=== PATIENT | female | born 1930 | race Caucasian/White ===

== ENCOUNTER 2018-06-06 11:14 | Emergency (ER) | payer OTHER ==
--- NOTE | 2018-06-06 11:32 | PDOC ---
History of Present Illness - General Chief Complaint: Wound Stated Complaint: RIGHT LEG WOUND Time Seen by Provider: 06/06/18 11:26 History Source: Patient Past History - Past Medical History Allergies/Adverse Reactions: Allergies Allergy/AdvReac Type Severity Reaction Status Date / Time Penicillins Allergy Severe Difficulty Verified 06/06/18 11:22 Breathing methohexital sodium Allergy n/v rash Verified 06/06/18 11:22 [From Brevital] Sulfa (Sulfonamide Allergy rash Verified 06/06/18 11:22 Antibiotics) Home Medications: Ambulatory Orders Crestor 06/06/18 Mirapex 06/06/18 Plaquenil 06/06/18 Hypercholesterolemia: Yes - Surgical History Abdominal Surgery: Yes (SBO/GANGRENE.) Orthopedic Surgery: Yes (left hip sx x 2,left femur sx,left hip sx x 1) - Suicide/Smoking/Psychosocial Hx Smoking History: Former smoker Have you smoked in the past 12 months: No If you are a former smoker, when did you quit?: OVER 35 YEARS AGO Hx Alcohol Use: No Drug/Substance Use Hx: No Substance Use Type: None Hx Substance Use Treatment: No
[2018-06-06 11:40] VITALS: BP 171/93; PULSE 71; TEMP 98.1; BMI 17.5
--- NOTE | 2018-06-06 11:54 | PDOC ---
History of Present Illness - General Chief Complaint: Wound Stated Complaint: RIGHT LEG WOUND Time Seen by Provider: 06/06/18 11:26 History Source: Patient Exam Limitations: No Limitations - History of Present Illness Initial Comments: 06/06/18 11:48 Ms Mann is an 88 yo F with a h/o RA (on Plaquenil), HLD, Spinal stenosis She presents to the ER for evaluation of a right leg wound Pt states she was in her usual state of health. While going down the stairs 3 or 4 days ago, the back of her leg was scratched by the carpet in her home No other traumatic injury reported Since that time, she has been keeping the area clean and dry, she applied bacitracin She presents today because she is concerned about superinfection No fevers or chills No drainage, no streaking erythema Mild pain at the site of injury PMH: HLD, RA PSH: Exlap for SBO, Left hip surg, Left femur surg, Right TKR Meds: Plaquenil ALL: PCN, Sulfa Social: denies drug or tobacco use FH: non contributory ROS: GENERAL/CONSTITUTIONAL: No: fever, chills MUSCULOSKELETAL: Yes: right leg pain SKIN: Yes: leg wound No: lesions, pallor, rash or easy bruising. NEUROLOGIC: No: headache, vertigo, paresthesias, weakness PE: GENERAL: The patient is in no acute distress. LUNGS: Breath sounds equal, clear to auscultation bilaterally. HEART:Regular rate and rhythm, normal S1 and S2 without murmur, rub or gallop. ABDOMEN: Soft, nontender EXTREMITIES: Normal range of motion, no edema. No clubbing or cyanosis. No erythema, or tenderness. NEUROLOGICAL: Cranial nerves II through XII grossly intact. Normal speech. No focal neurological deficits. MUSCULOSKELETAL: Right knee replaced, right leg swollen SKIN: Right leg superficial abrasion, fibrinous base, mild surrounding erythema , no drainage, no streaking erythema, no drainage 06/06/18 11:57 Past History - Past Medical History Allergies/Adverse Reactions: Allergies Allergy/AdvReac Type Severity Reaction Status Date / Time Penicillins Allergy Severe Difficulty Verified 06/06/18 11:22 Breathing methohexital sodium Allergy n/v rash Verified 06/06/18 11:22 [From Brevital] Sulfa (Sulfonamide Allergy rash Verified 06/06/18 11:22 Antibiotics) Home Medications: Ambulatory Orders Cephalexin Monohydrate [Keflex -] 250 mg PO Q6H #28 capsule 06/06/18 Crestor 06/06/18 Mirapex 06/06/18 Plaquenil 06/06/18 COPD: No Hypercholesterolemia: Yes - Surgical History Abdominal Surgery: Yes (SBO/GANGRENE.) Orthopedic Surgery: Yes (left hip sx x 2,left femur sx,left hip sx x 1) - Suicide/Smoking/Psychosocial Hx Smoking History: Former smoker Have you smoked in the past 12 months: No If you are a former smoker, when did you quit?: OVER 35 YEARS AGO Information on smoking cessation initiated: No Hx Alcohol Use: No Drug/Substance Use Hx: No Substance Use Type: None Hx Substance Use Treatment: No *Physical Exam - Vital Signs Last Vital Signs Temp Pulse Resp BP Pulse Ox 98.1 F 71 20 171/93 H 100 06/06/18 11:22 06/06/18 11:22 06/06/18 11:22 06/06/18 11:22 06/06/18 11:22 Moderate Sedation - Procedure Monitoring Vital Signs: Procedure Monitoring Vital Signs Temperature 98.1 F 06/06/18 11:22 Pulse Rate 71 06/06/18 11:22 Respiratory Rate 20 06/06/18 11:22 Blood Pressure 171/93 H 06/06/18 11:22 O2 Sat by Pulse Oximetry (%) 100 06/06/18 11:22 Medical Decision Making - Medical Decision Making 06/06/18 11:50 No systemic signs of illness No surrounding erythema or drainage Will give abx as pt is immunosuppressed on Plaquenil Will ask pt to follow up with Dr Moore (or the ER) for re assessment in 2 business days Clinical impression: skin tear, initial presentation *DC/Admit/Observation/Transfer Diagnosis at time of Disposition: Skin tear, Infected wound - Discharge Dispostion Disposition: HOME Condition at time of disposition: Stable Decision to Admit order: No - Prescriptions Prescriptions: Cephalexin Monohydrate [Keflex -] 250 mg PO Q6H #28 capsule - Referrals - Patient Instructions Printed Discharge Instructions: DI for Abrasion Additional Instructions: Thank you for coming in to the ER today Please be sure to take the antibiotics as prescribed Return to the emergency department immediately with ANY new, persistent or worsening symptoms - fevers, chills, drainage, increased redness Continue any medications as previously prescribed by your physician. You should follow up with your primary doctor on Friday or Friday for re evaluation. If you can not see your doctor, you can come to the ER for re evaluation. You should also take photographs to track the progression of your wound. Thank you for coming to the [facility] today for your care. It was a pleasure to see you today. Please note that your evaluation is INCOMPLETE until you follow-up with your doctor. - Post Discharge Activity
== END 2018-06-06 12:02 | disposition home or self-care (01) ==
LOC: FER 11:14
DX: L08.9 Local infection of the skin and subcutaneous tissue, unspecified (principal); S81.811A Laceration without foreign body, right lower leg, initial encounter; E78.5 Hyperlipidemia, unspecified; M48.00 Spinal stenosis, site unspecified; W10.9XXA Fall (on) (from) unspecified stairs and steps, initial encounter; Y93.89 Activity, other specified; Y92.009 Unspecified place in unspecified non-institutional (private) residence as the place of occurrence of the external cause; Z87.891 Personal history of nicotine dependence
CPT/HCPCS: 99282-25

== ENCOUNTER 2018-11-21 11:21 | Emergency (ER) | payer OTHER ==
[2018-11-21 11:42] VITALS: BMI 17.2
[2018-11-21] MEDS ORDERED: ACETAMINOPHEN 325 MG TABLET (FP) PO ONE (12:02)
--- NOTE | 2018-11-21 12:03 | PDOC ---
History of Present Illness - General Chief Complaint: Pain Stated Complaint: FELL Time Seen by Provider: 11/21/18 11:48 History Source: Patient Exam Limitations: No Limitations - History of Present Illness Initial Comments: 88 yo F presents s/p mechanical fall. She states she lost her balance while walking back from the bathroom in the middle of the night, falling onto her right hip. Denies LOC, head trauma. She c/o low back pain to both sides. Denies weakness, numbness. She has had falls in the past, it was recommended that she use a cane or walker, but she forgets it. She took tylenol 500 mg last night, nothing today. Past History - Past Medical History Allergies/Adverse Reactions: Allergies Allergy/AdvReac Type Severity Reaction Status Date / Time Penicillins Allergy Severe Difficulty Verified 06/06/18 11:22 Breathing methohexital sodium Allergy n/v rash Verified 06/06/18 11:22 [From Brevital] Sulfa (Sulfonamide Allergy rash Verified 06/06/18 11:22 Antibiotics) Home Medications: Ambulatory Orders Acetaminophen [Tylenol] 325 mg PO TID PRN 11/21/18 Cholecalciferol (Vitamin D3) [Vitamin D] 4,000 unit PO DAILY 11/21/18 Hydroxychloroquine Sulfate [Plaquenil] 200 mg PO DAILY 11/21/18 Pramipexole Dihydrochloride [Mirapex -] 1 mg PO DAILY 11/21/18 Rosuvastatin Calcium [Crestor] 10 mg PO DAILY 11/21/18 COPD: No Hypercholesterolemia: Yes - Surgical History Abdominal Surgery: Yes (SBO/GANGRENE.) Orthopedic Surgery: Yes (left hip sx x 2,left femur sx,left hip sx x 1) - Immunization History TDAP Vaccination: Yes (03/31/2016) - Suicide/Smoking/Psychosocial Hx Smoking History: Never smoked Have you smoked in the past 12 months: No If you are a former smoker, when did you quit?: OVER 35 YEARS AGO Hx Alcohol Use: No Drug/Substance Use Hx: No Substance Use Type: None Hx Substance Use Treatment: No Review of Systems - Review of Systems Able to Perform ROS?: Yes Comments:: GENERAL/CONSTITUTIONAL: No fever or chills. No weakness. HEAD, EYES, EARS, NOSE AND THROAT: No change in vision. No ear pain or discharge. No sore throat. CARDIOVASCULAR: No chest pain or shortness of breath. RESPIRATORY: No cough, wheezing, or hemoptysis. GASTROINTESTINAL: No nausea, vomiting, diarrhea or constipation. GENITOURINARY: No dysuria, frequency, or change in urination. MUSCULOSKELETAL: +R hip pain. No neck pain. +Low back pain. SKIN: No rash. NEUROLOGIC: No headache, vertigo, loss of consciousness, or change in strength/ sensation. ENDOCRINE: No increased thirst. No abnormal weight change. HEMATOLOGIC/LYMPHATIC: No anemia, easy bleeding, or history of blood clots. ALLERGIC/IMMUNOLOGIC: No hives or skin allergy. *Physical Exam - Vital Signs Last Vital Signs Temp Pulse Resp BP Pulse Ox 98.4 F 91 H 16 160/89 96 11/21/18 11:22 11/21/18 11:22 11/21/18 11:22 11/21/18 11:22 11/21/18 11:22 - Physical Exam Comments: GENERAL: Awake, alert, and fully oriented, in no acute distress HEAD: No signs of trauma EYES: PERRLA, EOMI, sclera anicteric, conjunctiva clear ENT: Auricles normal inspection, hearing grossly normal, nares patent, oropharynx clear without exudates. Moist mucosa NECK: Normal ROM, supple, no lymphadenopathy, JVD, or masses LUNGS: Breath sounds equal, clear to auscultation bilaterally. No wheezes, and no crackles HEART: Regular rate and rhythm, normal S1 and S2, no murmurs, rubs or gallops ABDOMEN: Soft, nontender, normoactive bowel sounds. No guarding, no rebound. No masses EXTREMITIES: +Tenderness to lower lumbar and sacral areas of back, but no stepoffs, no ecchymoses. +Tenderness to B/L iliac crests and R hip. Normal range of motion, no edema. No clubbing or cyanosis. No cords, erythema, or tenderness NEUROLOGICAL: Cranial nerves II through XII grossly intact. Normal speech. Motor and sensation intact. Slight antalgic gait, walks with cane for assistance SKIN: Warm, dry, normal turgor, no rashes or lesions noted. No ecchymoses. ED Treatment Course - LABORATORY CBC & Chemistry Diagram: 11/21/18 14:05 11/21/18 14:05 Medical Decision Making - Medical Decision Making 11/21/18 12:06 Pt presents with musculoskeletal pain s/p mechanical fall. Low suspicion for fx , however, will obtain XR based on age. Will give 1g tylenol for pain- will avoid any meds with sedative side effects based on fall risk. 11/21/18 13:[address] Humphreys from radiology- XR shows T12 fx indeterminate age ( likely old, as this is not the location of her pain) as well as a suspected AAA. She is not aware of any prior history of AAA. Will obtain labs and plan for CTA, especially in light of fall. 11/21/18 16:14 CTA read by radiology, no AAA. Labs show hyponatremia which is chronic from prior labs. Stable for DC home. Counseled patient to use her cane as directed by her PT, otherwise she may continue to have falls. *DC/Admit/Observation/Transfer Diagnosis at time of Disposition: Fall Qualifiers: Encounter type: initial encounter Qualified Code(s): W19.XXXA - Unspecified fall, initial encounter - Discharge Dispostion Disposition: HOME Condition at time of disposition: Stable Decision to Admit order: No - Referrals Referrals: Chinedu Moore MD [Primary Care Provider] - - Patient Instructions Printed Discharge Instructions: DI for Contusion, How to Prevent Falls Additional Instructions: Tylenol extra strength (500 mg tabs)- take 2 tabs by mouth every 6 hours as needed for pain. USE CANE DIRECTED BY PT!! - Post Discharge Activity
[2018-11-21] MEDS ORDERED: ACETAMINOPHEN 500 MG TABLET (FP) ONE (12:13)
[2018-11-21 14:11] LABS: BASO % 0.3 % (0-2.0); EOS % 0.6 % (0-4.5); HEMOGLOBIN 10.9 GM/dl (10.7-15.3); LYMPH % 10.6 % (8-40); MCH 32.7 pg (25.7-33.7); MCHC 34.1 g/dl (32.0-36.0); MEAN CELL VOLUME 95.8 fl (80-96); MEAN PLT VOLUME 6.7 fl (7.5-11.1); MONO % 9.7 % (3.8-10.2); NEUT % 78.8 % (42.8-82.8); PLATELET COUNT 292 K/MM3 (134-434); RBC 3.34 M/mm3 (3.60-5.2); RDW 12.8 % (11.6-15.6); WHITE BLOOD COUNT 6.4 K/mm3 (4.0-10.8)
[2018-11-21 14:27] LABS: CALCIUM 9.1 mg/dl (8.5-10); CREATININE 0.5 mg/dl (0.55-1.3); POTASSIUM 5.1 mmol/L (3.5-5.1)
[2018-11-21 16:32] VITALS: BP 180/100; PULSE 70; TEMP 97.5
== END 2018-11-21 16:25 | disposition home or self-care (01) ==
LOC: FER 11:21
DX: Z04.3 Encounter for examination and observation following other accident (principal); W18.39XA Other fall on same level, initial encounter; Y93.89 Activity, other specified; Y92.002 Bathroom of unspecified non-institutional (private) residence as the place of occurrence of the external cause; E78.00 Pure hypercholesterolemia, unspecified; Z87.891 Personal history of nicotine dependence
CPT/HCPCS: 36415; 71275-TC; 72100-TC-FY; 73523-TC-FY; 74174-TC; 80048; 85025; 99282-25